=== PATIENT | female | born 1990 | race Caucasian/White ===

== ENCOUNTER 2025-08-03 05:04 | Emergency (ER) | payer OTHER ==
[~2025-08-03] VITALS: Ht 167.6 cm; Wt 79.5 kg
[2025-08-03 05:46] LABS: PLATELET COUNT (AUTO) 235 K/uL (150-450); RED BLOOD CELL COUNT(AUTO) 4.00 MIL/uL (4.00-5.20); RED CELL DISTRIBUTION WIDTH 13.8 % (11.5-14.5); WHITE BLOOD COUNT (AUTO) 7.4 K/uL (4.5-11.0)
[2025-08-03 06:00] VITALS: TEMP 97.905272
[2025-08-03] MEDS ORDERED: HYDR-5256 PO (06:23)
[2025-08-03] MEDS ORDERED: QUET25TA PO (06:23)
[2025-08-03] MEDS ORDERED: TRAZ-184 PO (06:23)
[2025-08-03] MEDS ORDERED: ARIP2TAB3 PO (06:23)
[2025-08-03] MEDS ORDERED: BUPR-344 PO (06:23)
[2025-08-03 07:07] VITALS: BP 119/76; PULSE 71; RESP 17; O2SAT 99
== END 2025-08-03 08:54 | disposition home or self-care (01) ==
LOC: EMS 05:08
DX: N93.9 Abnormal uterine and vaginal bleeding, unspecified (principal); F41.9 Anxiety disorder, unspecified; F32.A Depression, unspecified; N89.8 Other specified noninflammatory disorders of vagina; J45.909 Unspecified asthma, uncomplicated; F17.210 Nicotine dependence, cigarettes, uncomplicated; Z87.59 Personal history of other complications of pregnancy, childbirth and the puerperium; Z98.890 Other specified postprocedural states; Z79.899 Other long term (current) drug therapy
CPT/HCPCS: 76856; 84702; 85025; 86901; 99284